=== PATIENT | male | born 1945 | race Asian ===

== ENCOUNTER 2020-06-07 21:55 | Emergency (ER) | payer BC, OTHER ==
[~2020-06-07] VITALS: Ht 180.3 cm; Wt 72.6 kg
[2020-06-07 22:05] VITALS: BP_SYST 208
[2020-06-07] MEDS ORDERED: HYDR-4039 PO (22:20)
[2020-06-07] MEDS ORDERED: ATEN50TA PO (22:21)
[2020-06-07] MEDS ORDERED: VERA40TA5 PO (22:21)
[2020-06-07] MEDS ORDERED: ACETAMINOPHEN 325 MG TABLET PO ONE (23:00)
[2020-06-07 23:52] LABS: BASOPHILS # (AUTO) 0.1 K/uL (0.0-0.2); LYMPHOCYTES # (AUTO) 0.9 K/uL (1.0-5.5); NEUTROPHILS # (AUTO) 4.5 K/uL (1.8-7.7); WHITE BLOOD COUNT (AUTO) 6.3 K/uL (4.8-10.8)
[2020-06-07 23:56] LABS: BASOPHILS % (AUTO) 1.2 % (0.0-2.0); EOSINOPHILS # (AUTO) 0.2 K/uL (0.0-0.4); EOSINOPHILS % (AUTO) 2.6 % (0.0-4.0); HEMATOCRIT 40.9 % (36-54); HEMOGLOBIN 13.6 g/dL (14.0-18.0); MEAN CORPUSCULAR HEMOGLOBIN 33 pg (27-31); MEAN CORPUSCULAR HGB CONC 33 % (32-36); MEAN CORPUSCULAR VOLUME 98 fL (79.0-98.0); MONOCYTES # (AUTO) 0.7 K/uL (0.0-1.0); MONOCYTES % (AUTO) 10.7 % (1.7-9.3); NEUTROPHILS % (AUTO) 70.5 % (40.0-70.0); PLATELET COUNT (AUTO) 170 K/uL (130-430); RED BLOOD CELL COUNT(AUTO) 4.16 MIL/uL (4.2-6.2); RED CELL DISTRIBUTION WIDTH 12.8 % (9.0-15.0)
[2020-06-08 00:08] LABS: ANION GAP 7 (5-15); CALCIUM 8.4 mg/dL (8.4-11.0); CHLORIDE 105 mmol/L (98-107); CREATININE 1.34 mg/dL (0.55-1.30); GLUCOSE 117 mg/dL (70-99); POTASSIUM 4.2 mmol/L (3.5-5.1); SODIUM SERUM 141 mmol/L (136-145); UREA NITROGEN, BLOOD 19 mg/dL (8-21)
[2020-06-08 00:16] LABS: ALANINE AMINOTRANSFERASE 37 U/L (12-78); ALBUMIN 3.6 g/dL (3.4-4.8); ASPARTATE AMINOTRANSFERASE 27 U/L (10-37); TOTAL BILIRUBIN 0.4 mg/dL (0.0-1.0)
[2020-06-08 01:19] VITALS: BP_SYST 190
== END 2020-06-08 01:19 | disposition home or self-care (01) ==
LOC: SED 21:55
DX: R51.9 Headache, unspecified (principal); I10 Essential (primary) hypertension
CPT/HCPCS: 36415; 70450-TC; 71045; 76376; 80053; 84484; 85025; 93005; 99285

== ENCOUNTER 2022-03-14 20:48 | Inpatient (IN) | payer OTHER ==
[~2022-03-14] VITALS: Ht 180.3 cm; Wt 73.5 kg
[~2022-03-14 20:48] MED LIST: ATEN50TA PO; HYDR-4039 PO; HYT1 PO; VERA40TA5 PO
[2022-03-14 20:51] VITALS: BP_SYST 154
[2022-03-14] MEDS ORDERED: KETOROLAC TROMETHAMINE 30 MG VIAL IVP ONE (21:30)
[2022-03-14] MEDS ORDERED: NACL 0.9% 1,000 ML IV ONE (21:30)
[2022-03-14 21:46] LABS: HEMOGLOBIN 13.1 g/dL (14.0-18.0); RED CELL DISTRIBUTION WIDTH 12.7 % (9.0-15.0); WHITE BLOOD COUNT (AUTO) 9.8 K/uL (4.8-10.8)
[2022-03-14 21:48] LABS: BILIRUBIN,URINE NEGATIVE (NEGATIVE); BLOOD, URINE NEGATIVE (NEGATIVE); CLARITY/URINE CLEAR (CLEAR); COLOR,URINE YELLOW (YELLOW); GLUCOSE,URINE NEGATIVE (NEGATIVE); KETONES,URINE NEGATIVE (NEGATIVE); LEUKOCYTE ESTERASE ,URINE NEGATIVE (NEGATIVE); NITRITE, URINE NEGATIVE (NEGATIVE); PROTEIN URINE NEGATIVE (NEGATIVE); UROBILINOGEN,URINE 0.2 (0.2-1.0)
[2022-03-14 21:50] LABS: BASOPHILS % (AUTO) 0.5 % (0.0-2.0); EOSINOPHILS % (AUTO) 0.5 % (0.0-4.0); HEMATOCRIT 38.2 % (36-54); LYMPHOCYTES # (AUTO) 0.8 K/uL (1.0-5.5); MEAN CORPUSCULAR HEMOGLOBIN 33 pg (27-31); MEAN CORPUSCULAR HGB CONC 34 % (32-36); MEAN CORPUSCULAR VOLUME 97 fL (79.0-98.0); MONOCYTES # (AUTO) 0.7 K/uL (0.0-1.0); MONOCYTES % (AUTO) 7.4 % (1.7-9.3); NEUTROPHILS # (AUTO) 8.2 K/uL (1.8-7.7); NEUTROPHILS % (AUTO) 83.6 % (40.0-70.0); PLATELET COUNT (AUTO) 173 K/uL (130-430); RED BLOOD CELL COUNT(AUTO) 3.95 MIL/uL (4.2-6.2)
[2022-03-14 22:06] LABS: ANION GAP 6 (5-15); CALCIUM 8.4 mg/dL (8.4-11.0); CHLORIDE 100 mmol/L (98-107); CREATININE 1.42 mg/dL (0.55-1.30); GLUCOSE 154 mg/dL (70-99); POTASSIUM 3.8 mmol/L (3.5-5.1); UREA NITROGEN, BLOOD 21 mg/dL (8-21)
[2022-03-14 22:11] LABS: ALANINE AMINOTRANSFERASE 36 U/L (12-78); ALBUMIN 3.5 g/dL (3.4-4.8); ASPARTATE AMINOTRANSFERASE 24 U/L (10-37)
[2022-03-14] MEDS ORDERED: CEFEPIME 1 GM in D5W 50 ML IV ONE (22:15)
[2022-03-14] MEDS ORDERED: CEFEPIME 1 GM/VIAL (MAXIPIME) ONE (22:29)
[2022-03-15] VITALS (9 sets, daily range): BP systolic 101–167
[2022-03-15] MEDS ORDERED: ACETAMINOPHEN 325 MG TABLET PO PRN ×3 (02:15→12:45)
[2022-03-15] MEDS ORDERED: MORPHINE 2 MG/ML INJ. SYRINGE IVP PRN (02:15)
[2022-03-15] MEDS: D5/0.45 NS 1,000 ML IV SCH ×2 (04:26→15:24)
[2022-03-15] MEDS ORDERED: hydrALAZINE HCL 20 MG/ML VIAL IVP ONE (07:25)
[2022-03-15] MEDS ORDERED: NEOSTIGMINE METHYLSULFATE 1 MG/ML, 10 ML VIAL IVP ONE (07:25)
[2022-03-15] MEDS ORDERED: CEFAZOLIN 2 GM IVPB PREMIX 50 ML IV ONE (07:25)
[2022-03-15] MEDS ORDERED: MIDAZOLAM HCL 5 MG/5 ML VIAL IVP ONE (07:25)
[2022-03-15] MEDS ORDERED: ONDANSETRON HCL 4 MG/2 ML VIAL IVP ONE (07:25)
[2022-03-15] MEDS ORDERED: ROCURONIUM BROMIDE 10 MG/ML (ZEMURON) IV ONE (07:25)
[2022-03-15] MEDS ORDERED: NS IRRIG SOLN 1000 ML IR ONE (07:25)
[2022-03-15] MEDS ORDERED: GLYCOPYRROLATE 0.2 MG/ML VIAL IJ ONE (07:25)
[2022-03-15] MEDS ORDERED: fentaNYL CITRATE/PF 100 MCG/2 ML AMP IVP ONE (07:25)
[2022-03-15] MEDS ORDERED: PROPOFOL 200MG/ 20ML VIAL (DIPRIVAN) IV ONE (07:25)
[2022-03-15] MEDS ORDERED: SEVOFLURANE 15 MIN GAS INH ONE (07:25)
[2022-03-15] MEDS ORDERED: BUPIVACAINE /PF 0.25% 30 ML VIAL INJ ONE (07:25)
[2022-03-15] MEDS ORDERED: LR 1,000 ML IV.SOLN IV ONE (07:25)
[2022-03-15] MEDS ORDERED: NS 1000 ML IV.SOLN IV ONE (07:25)
[2022-03-15 07:36] LABS: PROTHROMBIN TIME 10.5 SECS (9.5-12.5)
[2022-03-15] MEDS ORDERED: ONDANSETRON HCL 4 MG/2 ML VIAL IVP PRN ×2 (08:15→12:15)
[2022-03-15] MEDS ORDERED: HYDROmorphone 1 MG/ML INJ. CARTRIDGE IM PRN (08:15)
[2022-03-15] MEDS ORDERED: METOCLOPRAMIDE HCL 10 MG/2 ML VIAL IVP PRN (08:15)
[2022-03-15] MEDS ORDERED: fentaNYL CITRATE/PF 100 MCG/2 ML AMP IVP PRN ×2 (08:15)
[2022-03-15] MEDS ORDERED: HYDROcodone/ACETAMIN 5-325 MG TAB (NORCO/ VICODIN) PO PRN ×2 (08:15→12:15)
[2022-03-15] MEDS ORDERED: NALOXONE HCL 0.4 MG/ML AMP (NARCAN) IVP PRN ×2 (12:15)
[2022-03-15] MEDS ORDERED: NON-FORMULARY MEDICATION (Verapamil Hcl 40 MG) PO SCH (12:15)
[2022-03-15] MEDS ORDERED: LORazepam 2 MG/ML VIAL IVP PRN (12:15)
[2022-03-15] MEDS ORDERED: INSULIN REGULAR, HUMAN 100 UNITS/ML, 3 ML VIAL (humuLIN R) SUBCUT PRN (12:15)
[2022-03-15] MEDS ORDERED: HYDROcodone/ACETAMIN 10-325 MG TAB PO PRN (12:15)
[2022-03-15] MEDS ORDERED: VERAPAMIL HCL 80 MG TABLET PO ONE (12:45)
[2022-03-15] MEDS ORDERED: ATENOLOL 50 MG TABLET (TENORMIN) PO ONE (12:45)
[2022-03-15] MEDS: NORMAL SALINE 5 ML DISP.SYRIN IVF SCH ×2 (14:00→20:40)
[2022-03-15] MEDS ORDERED: NORMAL SALINE 5 ML DISP.SYRIN IVF SCH (14:00)
[2022-03-15] MEDS: hydrALAZINE HCL 25 MG TABLET PO SCH ×2 (15:29→20:44)
[2022-03-15] MEDS ORDERED: TERAZOSIN HCL 1 MG CAPSULE (HYTRIN) PO SCH (21:00)
[2022-03-15] MEDS ORDERED: ATROPINE SULFATE 0.4 MG/ML VIAL IVP ONE (22:00)
[2022-03-15 23:30] LABS: ANION GAP 4 (5-15); CALCIUM 8.2 mg/dL (8.4-11.0); CHLORIDE 105 mmol/L (98-107); CREATININE 1.47 mg/dL (0.55-1.30); GLUCOSE 144 mg/dL (70-99); UREA NITROGEN, BLOOD 17 mg/dL (8-21)
[2022-03-15 23:49] LABS: POTASSIUM 5.9 mmol/L (3.5-5.1)
[2022-03-16] MEDS ORDERED: SODIUM BICARBONATE 8.4% JECT 50 MEQ/50 ML SYRINGE IVP ONE (00:45)
[2022-03-16] MEDS ORDERED: SODIUM POLYSTYRENE SULFONATE 15 GM/60 ML UDBTL PO ONE (00:45)
[2022-03-16] MEDS ORDERED: NACL 0.9% 1,000 ML IV SCH (00:45)
[2022-03-16] MEDS ORDERED: CALCIUM GLUCONATE 1 GM in NS 100 ML IV ONE (00:45)
[2022-03-16] MEDS ORDERED: FUROSEMIDE 40 MG/4 ML VIAL IVP ONE (00:45)
[2022-03-16] MEDS ORDERED: CALCIUM GLUCONATE 1 GM/10 ML VIAL ONE (01:06)
[2022-03-16 02:32] VITALS: BP_SYST 118
[2022-03-16] MEDS: NORMAL SALINE 5 ML DISP.SYRIN IVF SCH (03:16)
[2022-03-16 06:22] LABS: ANION GAP 9 (5-15); CALCIUM 8.9 mg/dL (8.4-11.0); CHLORIDE 105 mmol/L (98-107); GLUCOSE 96 mg/dL (70-99); POTASSIUM 3.7 mmol/L (3.5-5.1); UREA NITROGEN, BLOOD 17 mg/dL (8-21)
[2022-03-16 06:23] LABS: ALANINE AMINOTRANSFERASE 35 U/L (12-78); ALBUMIN 3.4 g/dL (3.4-4.8); ASPARTATE AMINOTRANSFERASE 29 U/L (10-37); TOTAL BILIRUBIN 0.7 mg/dL (0.0-1.0)
[2022-03-16 06:24] LABS: PHOSPHORUS 3.4 mg/dL (2.7-4.5)
[2022-03-16 06:25] LABS: HEMOGLOBIN 12.5 g/dL (14.0-18.0); MEAN CORPUSCULAR HEMOGLOBIN 33 pg (27-31); MEAN CORPUSCULAR HGB CONC 33 % (32-36); MEAN CORPUSCULAR VOLUME 99 fL (79.0-98.0); PLATELET COUNT (AUTO) 161 K/uL (130-430); WHITE BLOOD COUNT (AUTO) 6.3 K/uL (4.8-10.8)
[2022-03-16 06:27] LABS: BASOPHILS % (AUTO) 0.6 % (0.0-2.0); EOSINOPHILS % (AUTO) 1.7 % (0.0-4.0); LYMPHOCYTES # (AUTO) 1.4 K/uL (1.0-5.5); MONOCYTES % (AUTO) 13.1 % (1.7-9.3); NEUTROPHILS # (AUTO) 3.9 K/uL (1.8-7.7); NEUTROPHILS % (AUTO) 61.6 % (40.0-70.0)
[2022-03-16 06:28] LABS: EOSINOPHILS # (AUTO) 0.1 K/uL (0.0-0.4); MONOCYTES # (AUTO) 0.8 K/uL (0.0-1.0)
[2022-03-16 08:00] VITALS: BP_SYST 161
[2022-03-16] MEDS ORDERED: VERAPAMIL HCL 80 MG TABLET PO SCH (09:00)
[2022-03-16] MEDS ORDERED: ATENOLOL 50 MG TABLET (TENORMIN) PO SCH (09:00)
[2022-03-16] MEDS: hydrALAZINE HCL 25 MG TABLET PO SCH (10:22)
[2022-03-16 12:00] VITALS: BP_SYST 168
[2022-03-16 14:16] VITALS: BP_SYST 156
[2022-03-16 14:24] VITALS: BP_SYST 156
[2022-03-17] MEDS ORDERED: VERAPAMIL HCL 120 MG TABLET.SA PO SCH (09:00)
== END 2022-03-16 14:50 | disposition home or self-care (01) | DRG 342 ==
LOC: SED 20:48 → SMU 03-15 02:06 → STU 03-15 23:04
PROVIDERS: ADMIT Specialist; ATTEND Specialist
PROC: 0DTJ4ZZ Resection of Appendix, Percutaneous Endoscopic Approach (ICD-10-PCS; principal; 2022-03-15 07:27)
DX: K35.80 Unspecified acute appendicitis (principal); E87.20 Acidosis, unspecified; Z20.822 Contact with and (suspected) exposure to COVID-19; E11.65 Type 2 diabetes mellitus with hyperglycemia; N40.0 Benign prostatic hyperplasia without lower urinary tract symptoms; E87.5 Hyperkalemia; I11.9 Hypertensive heart disease without heart failure; Z88.0 Allergy status to penicillin; Z90.49 Acquired absence of other specified parts of digestive tract; Z79.899 Other long term (current) drug therapy
CPT/HCPCS: 36415; 71045; 76376; 80048; 80053; 81003; 82962; 83605; 83735; 84100; 84484; 85025; 85610-TC; 85730-TC; 86886; 86900; 86901; 87040; 87081; 88304; 93005; 94010; 96365; 96375; 99285; C1727; G0378; J0360; J0461; J0610; J0690; J0692; J1815; J1885; J1940; J2250; J2405; J2704; J2710; J3010; J3490; J7030; J7120

== ENCOUNTER 2022-03-31 08:56 | Inpatient (IN) | payer OTHER ==
[2022-03-31] VITALS (9 sets, daily range): BP systolic 102–150
[~2022-03-31] VITALS: Ht 180.3 cm; Wt 72.6 kg
--- NOTE | 2022-03-31 09:20 | NUR ---
Patient to ER bed 4 to gown for evaluation. Side rails up. Report given to Sandra HAAS.
--- NOTE | 2022-03-31 09:21 | NUR ---
Patient C/O Dizziness x 1 day, patien reports havinf surgery at [facility] x 2 weeks ago for Appendectomy. Nausea reported with no emesis. Patient states, "I feel light headed".
[2022-03-31] MEDS ORDERED: NACL 0.9% 1,000 ML IV ONE (09:45)
--- NOTE | 2022-03-31 10:01 | NUR ---
20G PIV placed to left AC
--- NOTE | 2022-03-31 10:02 | NUR ---
Labs drawn and sent to lab
--- NOTE | 2022-03-31 10:02 | NUR ---
Patient taken by arc cutter for imaging via W/C
--- NOTE | 2022-03-31 10:19 | NUR ---
Patient returned from Imaging, placed back onto monitor.
[2022-03-31 10:26] LABS: ANION GAP 5 (5-15); CALCIUM 8.7 mg/dL (8.4-11.0); CHLORIDE 105 mmol/L (98-107); CREATININE 1.25 mg/dL (0.55-1.30); GLUCOSE 142 mg/dL (70-99); UREA NITROGEN, BLOOD 20 mg/dL (8-21)
[2022-03-31 10:31] LABS: ALANINE AMINOTRANSFERASE 73 U/L (12-78); ALBUMIN 3.5 g/dL (3.4-4.8); ASPARTATE AMINOTRANSFERASE 87 U/L (10-37); TOTAL BILIRUBIN 0.5 mg/dL (0.0-1.0)
[2022-03-31 10:32] LABS: BASOPHILS % (AUTO) 0.8 % (0.0-2.0); EOSINOPHILS % (AUTO) 0.5 % (0.0-4.0); HEMATOCRIT 36.5 % (36-54); HEMOGLOBIN 12.4 g/dL (14.0-18.0); LYMPHOCYTES # (AUTO) 0.6 K/uL (1.0-5.5); LYMPHOCYTES % (AUTO) 11.5 % (20.5-51.5); MEAN CORPUSCULAR HEMOGLOBIN 33 pg (27-31); MEAN CORPUSCULAR HGB CONC 34 % (32-36); MEAN CORPUSCULAR VOLUME 98 fL (79.0-98.0); MONOCYTES # (AUTO) 0.4 K/uL (0.0-1.0); MONOCYTES % (AUTO) 7.5 % (1.7-9.3); NEUTROPHILS # (AUTO) 4.2 K/uL (1.8-7.7); NEUTROPHILS % (AUTO) 79.7 % (40.0-70.0); PLATELET COUNT (AUTO) 171 K/uL (130-430); RED BLOOD CELL COUNT(AUTO) 3.71 MIL/uL (4.2-6.2); WHITE BLOOD COUNT (AUTO) 5.3 K/uL (4.8-10.8)
--- NOTE | 2022-03-31 10:52 | NUR ---
Med Rec completed
--- NOTE | 2022-03-31 10:56 | NUR ---
COVID SWAB COLLECTED AND SENT TO LAB.
--- NOTE | 2022-03-31 11:02 | NUR ---
Patient has stated he does not want to remain in hospital, MD made aware and MD at bedside discussing risks and benefits with patient.
--- NOTE | 2022-03-31 11:06 | NUR ---
COVID SWAB COLLECTED AND SENT TO LAB.
[2022-03-31] MEDS ORDERED: 0.45% NACL 1,000 ML IV ONE (11:30)
--- NOTE | 2022-03-31 11:30 | NUR ---
Admit bed requested Patient will be admitted to care of Dr. Mortensen Admitted to TELE unit. Diagnosis Bradycardia Inpatient (Yes or No) Yes Observation (Yes or No) No Orientation concerns or request close to nursing station No Covid Status NEG On vent or bipap NO Isolation requirements None Needs a sitter NO From Home (Yes or if No enter name of facility) HOME Requires Dialysis (Yes or No) NO Med Rec Completed (Yes of No) YES
--- NOTE | 2022-03-31 11:39 | NUR ---
Consult placed for Dr. Mccabe (Cardiac)MD aware and will see patient at bedside.
--- NOTE | 2022-03-31 11:39 | NUR ---
Admit orders rcvd from Dr. Balbina MD to come see patient at bedside
--- NOTE | 2022-03-31 11:59 | NUR ---
Patient will be admitted to care of Dr. Mortensen. Admitted to TELE unit. Will go to room 101A. Belongings list completed. Complete and up to date summary report printed. SBAR report to be given at bedside with opportunity for questions.
--- NOTE | 2022-03-31 12:15 | NUR ---
ADMIT TO UNIT PATIENT ADMITTED TO TELE UNIT. AOX4. NO S.S OF ACUTE DISTRESS NOTED. BREATHING IS EVEN AND NONLABORED, ON ROOM AIR. VITAL SIGNS OBTAINED, DOCUMENTED. HEART RATE 45 BPM. PATIENT STATES DOES NOT FEEL DIZZY AT THIS TIME. PATIENT DENIES PAIN, PATIENT DENIES SOB. PATIENT HAS BEEN ORIENTED TO ROOM AND CALL LIGHT USE. PATIENT EDUCATED ON FALL PREVENTION AND SAFETY PRECAUTIONS. PATIENT VERBALIZED UNDERSTANDING TO CALL FOR ASSISTANCE. AT BEDSIDE. BED LOCKED, ALARM ON, AND AT LOWEST POSITION. CALL LIGHT WITHIN REACH.
--- NOTE | 2022-03-31 12:45 | NUR ---
NOTES DR. Last SCHOFIELD CAME TO SEE PATIENT. ORTHOSTATIC VITAL SIGNS OBTAINED, DOCUMENTED.
[2022-03-31] MEDS ORDERED: VERA120C2 PO (12:58)
[2022-03-31] MEDS ORDERED: ATEN-41 PO (13:12)
--- NOTE | 2022-03-31 13:42 | NUR ---
CONSULTATION: REASON FOR CONSULT: BRADYCARDIA CONSULTING PHYSICIAN: RIA ORDERED BY: CARLOS A SPOKE WITH CHERRY [phone]
[2022-03-31 14:01] LABS: PROTHROMBIN TIME 10.6 SECS (9.5-12.5)
--- NOTE | 2022-03-31 16:00 | NUR ---
NOTES PATIENT IS RESTING, EYES OPEN, WATCHING TV. DENIES PAIN. NO DISTRESS NOTED. DENIES DIZZINESS AND SOB. AT BEDSIDE. SAFETY PRECAUTIONS IN PLACE AND CALL LIGHT WITHIN REACH.
--- NOTE | 2022-03-31 19:27 | NUR ---
CLOSING NOTES PATIENT IS EATING DINNER. NO S.S OF DISTRESS NOTED. DENIES PAIN, DENIES SOB. BREATHING IS EVEN AND NONLABORED, ON ROOM AIR. PATIENT DENIES DIZZINESS. IVF RUNNING. IV PATENT. ALL NEEDS MET. SAFETY PRECAUTIONS IN PLACE AND CALL LIGHT WITHIN REACH. REPORT GIVEN AND ENDORSED CARE TO WALDO NEWELL.
[2022-03-31] MEDS: APIXABAN 2.5 MG TABLET PO SCH (21:48)
[2022-04-01] VITALS (7 sets, daily range): BP systolic 157–178
--- NOTE | 2022-04-01 07:15 | NUR ---
OPENING NOTE Patient in bed resting, no sign of distress and denies pain. Patient inquiring on when he will be able to go home; updated the patient on the plan of care, verbalized understanding. Patient able to sit up and ambulate with steady gait. All needs met at this time and safety checks made.
[2022-04-01] MEDS: APIXABAN 2.5 MG TABLET PO SCH (08:52)
[2022-04-01] MEDS ORDERED: hydrALAZINE HCL 25 MG TABLET PO ONE ×2 (10:00→13:30)
[2022-04-01] MEDS ORDERED: hydrALAZINE HCL 25 MG TABLET ONE (10:09)
--- NOTE | 2022-04-01 12:00 | NUR ---
ROUNDS Patient in bed resting, no sign of distress and denies pain. Patient has been updated on his plan of care, verbalized understanding. Patient's BP was elevated, MD aware and a one time dose of hydralazine was given. All needs met at this time and safety checks made.
--- NOTE | 2022-04-01 15:40 | NUR ---
D/C Patient Patient given medication reconciliation form and D/C instructions. Exit Care provided. Patient verbalized understanding. MD discussed with patient the results and treatment provided. Ambulatory with steady gait for discharge to home via private auto with family. Patient in stable condition, ID band removed. IV catheter removed, intact and dressing applied, no active bleeding. Patient educated on pain management, and how to monitor his BP and HR at home. All belongings sent with patient.
--- NOTE | 2022-04-02 08:14 | NUR ---
Dispo code 01
== END 2022-04-01 15:40 | disposition home or self-care (01) | DRG 312 ==
LOC: SED 08:56 → STU 11:27
PROVIDERS: ADMIT Internal Medicine; ATTEND Internal Medicine
DX: I95.2 Hypotension due to drugs (principal); R00.1 Bradycardia, unspecified; I10 Essential (primary) hypertension; Z20.822 Contact with and (suspected) exposure to COVID-19; I48.91 Unspecified atrial fibrillation; Z79.01 Long term (current) use of anticoagulants; T46.1X5A Adverse effect of calcium-channel blockers, initial encounter
CPT/HCPCS: 36415; 71045; 80053; 84484; 85025; 85610-TC; 85730-TC; 93005; 99285; G0378; J7030